=== PATIENT | male | born 1980 | race African-American/Black ===

== ENCOUNTER 2019-01-13 13:57 | Emergency (ER) | payer SELFPAY ==
[~2019-01-13] VITALS: Ht 175.3 cm; Wt 79.5 kg
[2019-01-13 14:03] VITALS: TEMP 97.3
[2019-01-13] MEDS ORDERED: ZITHROMAX Z PA250 MG PO (14:59)
[2019-01-13] MEDS ORDERED: PREDNISONE20 MG PO (14:59)
[2019-01-13 15:21] VITALS: BP 122/68; PULSE 68
== END 2019-01-13 15:25 | disposition home or self-care (01) ==
LOC: COL.ER 13:57
DX: J20.9 Acute bronchitis, unspecified (principal)